=== PATIENT | male | born 1990 | race African-American/Black ===

== ENCOUNTER 2018-06-17 14:54 | Emergency (ER) | payer SELFPAY ==
[2018-06-17 15:25] LABS: Clarity Clear (Clear); Glucose, Urine (Dipstick) Negative (Negative); Leukocyte Negative (Negative); Nitrite Negative (Negative); Protein, Urine (Dipstick) Negative (Neg-Trace); Specific Gravity, Urine 1.025 (1.005-1.030); pH, Urine 6.5 (5.0-9.0)
[2018-06-17 15:26] LABS: Bilirubin Negative (Negative); Blood, Urine Negative (Negative); Urobilinogen 0.2 mg/dL (0.2-1.0)
[2018-06-17] MEDS ORDERED: Ibuprofen 200 MG TAB ONE (15:41)
== END 2018-06-17 15:47 | disposition home or self-care (01) ==
LOC: BURERS 14:54
DX: S39.011A Strain of muscle, fascia and tendon of abdomen, initial encounter (principal); X58.XXXA Exposure to other specified factors, initial encounter
CPT/HCPCS: 81003; 99284